=== PATIENT | female | born 1960 | race Caucasian/White ===

== ENCOUNTER 2018-02-03 09:16 | Emergency (ER) | payer OTHER ==
[~2018-02-03] VITALS: Ht 152.4 cm; Wt 44.0 kg
[2018-02-03 09:22] VITALS: BP 120/75; Ht 152.4 cm; Wt 44.0 kg
== END 2018-02-03 10:07 | disposition home or self-care (01) ==
LOC: ED 09:16
DX: K08.89 Other specified disorders of teeth and supporting structures (principal); R22.0 Localized swelling, mass and lump, head; R56.9 Unspecified convulsions